=== PATIENT | male | born 1995 | race Caucasian/White ===

== ENCOUNTER 2021-05-18 21:07 | Emergency (ER) | payer OTHER, SELFPAY ==
[2021-05-18 21:15] VITALS: BP 153/85; PULSE 74; RESP 18; TEMP 36.7; O2SAT 99
[2021-05-18] MEDS: Lidocaine/Epinephri/Tetracaine Topical Gel 3 ML (21:25)
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
[2021-05-18 22:07] VITALS: BP 132/76; PULSE 88; RESP 18; TEMP 36.6; O2SAT 98
== END 2021-05-18 22:16 | disposition home or self-care (01) ==
PROVIDERS: Emergency Provider Student in an Organized Health Care Education/Training Program; PCP Family Medicine
DX: S01.511A Laceration without foreign body of lip, initial encounter (principal); Y04.2XXA Assault by strike against or bumped into by another person, initial encounter
CPT/HCPCS: 12011; 90471

== ENCOUNTER 2023-10-18 03:37 | Emergency (ER) | payer SELFPAY ==
[2023-10-18 03:43] VITALS: BP 106/74; PULSE 64; RESP 15; TEMP 36.2; O2SAT 98
[2023-10-18 03:51] VITALS: RESP 14
--- NOTE | 2023-10-18 04:00 | W.ED.GENAD ---
Discharge Plan Disposition Patient Disposition: [facility] Condition: Stable Discharge Details Clinical Impression: Substance abuse Primary Care Provider: Irina Wallace ED Provider: Silverio Villalpando Meds and New Rx's Prescriptions: No Action quetiapine [Seroquel] 300 mg Tablet 300 mg PO HS Rx Instructions: Take with 50 mg tab for total dose 350 mg Daily melatonin 3 mg Tablet 6 mg PO HS PRN PRN acetaminophen 500 mg Tablet 500 mg PO DAILY PRN PRN pantoprazole [Protonix] 20 mg Tablet,Delayed Release (Dr/Ec) 20 mg PO DAILY sertraline 25 mg Tablet 75 mg PO DAILY naproxen 500 mg Tablet 500 mg PO BID PRN PRN (Reason: Pain) buprenorphine HCl [Subutex] 2 mg Tablet, Sublingual 4 mg SUBLINGUAL DAILY AM quetiapine [Seroquel] 50 mg Tablet 50 mg PO HS Rx Instructions: Take with 300 mg tab for total of 350 mg Daily Discharge Instructions Additional Instructions: You were brought to the ED for medical evaluation. Once the special police officer left you were wide-awake, argumentative, abusive to staff. You are cleared to be released into police custody. HPI General Mode of arrival: wheelchair. Date/Time Provider Initiated Documentation: 10/18/23 03:52. Limitations to Documentation: altered mental status. Information obtained by: police. HPI Narrative: Patient is brought to the ED by police for medical evaluation. Patient was arrested this evening. During processing officer reports that patient was awake, agitated, abusive and swearing. He was being transported from [facility] for housing until he could go to court in the morning. Officer reports that on the drive over he seemed to be sleeping for the most part in the back. Officer reports stopping a couple of times to check on his wellbeing and he seemed to be breathing fine. When he arrived to the [facility] here in [place] medical staff did not feel comfortable and thought he was to obtunded and wanted him evaluated in the ED. Patient at the time of my evaluation is handcuffed and sitting in a wheelchair with his head hanging back over the wheelchair sleeping. Related Data Home Medications ?Medication ?Instructions ?Recorded ?Confirmed acetaminophen 500 mg tablet 500 mg PO DAILY PRN PRN 05/18/21 05/18/21 buprenorphine HCl 2 mg sublingual 4 mg sublingual DAILY AM 05/18/21 05/18/21 tablet melatonin 3 mg tablet 6 mg PO HS PRN PRN 05/18/21 05/18/21 naproxen 500 mg tablet 500 mg PO BID PRN PRN Pain 05/18/21 05/18/21 pantoprazole 20 mg tablet,delayed 20 mg PO DAILY 05/18/21 05/18/21 release (Protonix) quetiapine 300 mg tablet (Seroquel) 300 mg PO HS 05/18/21 05/18/21 quetiapine 50 mg tablet (Seroquel) 50 mg PO HS 05/18/21 05/18/21 sertraline 25 mg tablet 75 mg PO DAILY 05/18/21 05/18/21 Allergies Allergy/AdvReac Type Severity Reaction Status Date / Time cefadroxil (From [facility]) Allergy Skin Rash Unverified 05/18/21 21:20 General Stated Complaint: GenMedical ANG: 3 Review of Systems Unobtainable due to mental status Exam Narrative Exam Narrative: Const: WDWN male sleeping in wheelchair. VS per triage. HEENT: NC/AT. Normal facial exam. Eyes: Pinpoint pupils. Neck: Supple. Trachea midline. Lungs: Normal respiratory effort. Cor: RRR. Good radial pulses. Neuro: Difficult to awaken and very difficult to understand when he is speaking. Cranial nerves II - XII grossly intact. No gross motor or sensory deficit. Course Vital Signs Vital signs: Vital Signs Temperature 97.2 F L 10/18/23 03:43 Pulse 64 10/18/23 03:43 Respiratory Rate 15 10/18/23 03:43 Blood Pressure 106/74 10/18/23 03:43 Pulse Oximetry 98 10/18/23 03:43 Temperature 97.2 F L 10/18/23 03:43 Temperature Source Temporal Artery Scan 10/18/23 03:43 Pulse 64 10/18/23 03:43 Respiratory Rate 14 10/18/23 03:51 Respiratory Effort Normal, Non-Labored 10/18/23 03:51 Respiratory Depth Shallow 10/18/23 03:51 Respiratory Pattern Normal 10/18/23 03:51 Blood Pressure 106/74 10/18/23 03:43 Blood Pressure Position Sitting 10/18/23 03:43 Pulse Oximetry 98 10/18/23 03:43 Oxygen Delivery Method Room Air 10/18/23 03:43 Oxygen Flow Rate 0 10/18/23 03:43 Pain Level 0 10/18/23 03:43 Medical Decision Making Patient is here for clearance before being brought to corrections. personal banking officer present reports that he is a known substance abuser. Patient appears to be sleeping with pinpoint pupils. Potentially used stimulant as well as opiate as he has been in custody since around midnight. The stimulant has worn off and the opiate is still present might explain his altered mental status. As such he is given 1 mg of Narcan intranasally. He did have some improvement but still seemed quite altered and sleepy. After discussion with please officer patient does have condition for release as well as pale. Officer will leave patient here and return to corrections to get his paperwork. Patient was taken out of handcuffs and placed on the stretcher. Soon as the special police officer left the patient was wide-awake. He was abusive towards staff, swearing and even spit at one of the nurses. I have no concern for his mental status at this point and suspect he was playing possum given how quickly he woke up as soon he was taken out of cuffs and the special police officer left. Call was placed to dispatch and [facility] notified. Officer returned and took the patient back into custody to transport him to corrections. PFSH All Active Problems Substance abuse (Acute) Medical History Medical history unknown Surgical History Surgical history unknown Social History Smoking/Tobacco Use Status: Current every day Tobacco Type: cigarettes Smoking risk assessment performed?: Yes Drug use: Daily Substance use type: heroin, opiates and IV drugs Details: Heroin, Fentanyl , any Opiate, mainly smoking but IV use also. Housing: other
[2023-10-18 04:29] VITALS: PULSE 62; RESP 22; O2SAT 98
== END 2023-10-18 04:38 ==
PROVIDERS: Emergency Provider Emergency Medicine; PCP Family Medicine
DX: F19.10 Other psychoactive substance abuse, uncomplicated (principal); F17.210 Nicotine dependence, cigarettes, uncomplicated
CPT/HCPCS: 99282; J2310

== ENCOUNTER 2024-11-21 07:20 | Emergency (ER) | payer SELFPAY ==
[2024-11-21 07:20] VITALS: BP 119/84; PULSE 56; RESP 16; TEMP 36.9; O2SAT 99
[2024-11-21] MEDS: levETIRAcetam 500 MG TAB 1000 MG PO (07:42)
--- NOTE | 2024-11-21 07:44 | W.ED.GENAD ---
Discharge Plan Disposition Patient Disposition: Home Condition: Stable Discharge Details Clinical Impression: Seizure disorder Primary Care Provider: Irina Wallace ED Provider: Syed Pendleton Home Meds and New Rx's Prescriptions: New levetiracetam 1,000 mg tablet 1,000 mg PO BID Qty: 60 0RF Continued melatonin 3 mg Tablet 6 mg PO HS PRN PRN acetaminophen 500 mg Tablet 500 mg PO DAILY PRN PRN pantoprazole [Protonix] 20 mg Tablet,Delayed Release (Dr/Ec) 20 mg PO DAILY sertraline 25 mg Tablet 75 mg PO DAILY naproxen 500 mg Tablet 500 mg PO BID PRN PRN (Reason: Pain) methadone 75 mg PO DAILY pregabalin 100 mg capsule 100 mg PO BID Patient Comments: TAKE 1 CAPSULE BY MOUTH IN THE MORNING AND TAKE 2 CAPSULES AT BEDTIME MAXIMUM DAILY DOSE = 3 CAPSULES levetiracetam 1,000 mg tablet 1,000 mg PO BID Patient Comments: TAKE ONE TABLET BY MOUTH TWICE A DAY Discharge Instructions Additional Instructions: I have prescribed you a 1 month supply of your seizure medication. Please follow-up with your primary care provider or neurologist to continue the prescription. Return to emergency department if you feel more ill or feel you are suffering from an emergent medical process. HPI General Mode of arrival: EMS. Date/Time Provider Initiated Documentation: 11/21/24 07:29. Limitations to Documentation: no limitations. Information obtained by: patient. History of Present Illness 28 year old M presents to the emergency department with the chief complaint of out of seizure medication, Patient started experiencing this week(s) (1) and it has been constant. No relieving factors improve symptom(s), No exacerbating factors reported . Patient notes denies chest pain, fever/chills, nausea/vomiting and shortness of breath. Patient did receive the following treatments prior to arrival, none Related Data Home Medications ?Medication ?Instructions ?Recorded ?Confirmed acetaminophen 500 mg tablet 500 mg PO DAILY PRN PRN 05/18/21 11/21/24 melatonin 3 mg tablet 6 mg PO HS PRN PRN 05/18/21 11/21/24 naproxen 500 mg tablet 500 mg PO BID PRN PRN Pain 05/18/21 11/21/24 pantoprazole 20 mg tablet,delayed 20 mg PO DAILY 05/18/21 11/21/24 release (Protonix) sertraline 25 mg tablet 75 mg PO DAILY 05/18/21 11/21/24 levetiracetam 1,000 mg tablet 1,000 mg PO BID 11/21/24 11/21/24 levetiracetam 1,000 mg tablet 1,000 mg PO BID #60 tabs 11/21/24 methadone 75 mg PO DAILY 11/21/24 11/21/24 pregabalin 100 mg capsule 100 mg PO BID 11/21/24 11/21/24 Previous Rx's ?Medication ?Instructions ?Recorded levetiracetam 1,000 mg tablet 1,000 mg PO BID #60 tabs 11/21/24 Allergies Allergy/AdvReac Type Severity Reaction Status Date / Time cefadroxil (From [facility] Allergy Skin Rash Unverified 11/21/24 07:27 General Stated Complaint: Seizure ANG: 3 Review of Systems All systems reviewed & are unremarkable except as noted in HPI and below Constitutional Constitutional: Denies chills, Denies fever(s) and Denies weakness Cardiovascular Cardiovascular: Denies chest pain and Denies dyspnea Respiratory Respiratory: Denies cough and Denies dyspnea Gastrointestinal Gastrointestinal: Denies abdominal pain, Denies nausea and Denies vomiting Neurologic Neurologic: Denies weakness Exam Const General: no acute distress Orientation: alert [facility] Head: normal to inspection Ears: external ears normal General nose exam: external nose normal Mouth: moist mucous membranes Eyes General: appearance normal, both eyes and all related structures Neck Neck: normal visual inspection Resp Effort & Inspection: normal respiratory effort and able to speak in complete sentences Cardio Rate: regular rate Skin General skin exam: no rashes or lesions noted Neuro General: patient alert and patient oriented x3 Cranial Nerves: CN's II-XI intact bilaterally Cognition: normal cognition Speech: speech normal Gait: normal gait Motor: muscle tone normal throughout Sensory Exam: no sensory deficits noted Extrem General: normal to inspection Psych Mental Status: mental status grossly normal Course Vital Signs Vital signs: Vital Signs Temperature 36.9 C 11/21/24 07:20 Pulse 56 L 11/21/24 07:20 Respiratory Rate 16 11/21/24 07:20 Blood Pressure 119/84 11/21/24 07:20 Pulse Oximetry 99 11/21/24 07:20 Temperature 36.9 C 11/21/24 07:20 Pulse 56 L 11/21/24 07:20 Respiratory Rate 16 11/21/24 07:20 Blood Pressure 119/84 11/21/24 07:20 Pulse Oximetry 99 11/21/24 07:20 Medical Decision Making 28-year-old male with a history of substance abuse and reported seizure disorder states he has been out of his seizure medication for about a week because he states that his medications got wet and was unable to contact his PCP to have it refilled. He does not know failure but states he was present and was discharged states he thought he was having an aura which sometimes indicates he is can have a seizure so he called EMS and was brought here. He states he thinks he had a seizure a week ago but is unable to provide any details on this. He is currently alert oriented x 4 with clear speech, moving all extremities well, NIH of 0. Denies any SI or HI. Has no meningismus or fevers. I do not feel any lab work or imaging is indicated, I am going to give him his dose of Keppra and provide him a short course of his Keppra until he can see his PCP. He is stable for discharge and will follow-up with his PCP, return precautions given Differential Diagnosis Differential Diagnosis: Seizure disorder, out of seizure medication PFSH All Active Problems (Updated 11/21/24 @ 07:49 by Syed Pendleton MD) Seizure disorder (Chronic) Medical History Medical history unknown Surgical History Surgical history unknown Social History Smoking/Tobacco Use Status: Current every day Tobacco Type: cigarettes Smoking risk assessment performed?: Yes Drug use: Daily Substance use type: heroin, opiates and IV drugs Details: Heroin, Fentanyl , any Opiate, mainly smoking but IV use also. Housing: other
--- NOTE | 2024-11-21 08:24 | NUR.NOTE ---
Nursing Note: 75mg Methadone daily dose confirmed by Emeka @ [facility]
[2024-11-21] MEDS: Methadone Liquid 10 MG/ML 75 MG PO (08:38)
--- NOTE | 2024-11-25 07:15 | NUR.NOTE ---
Nursing Note: Received call from patient that [facility] in [place],, [place] needs verification that he received his Methadone dose here on 11/21/2024. Called [facility] and spoke w/nurse Tanna. Fax number verified and fax sent to verify dose received to fax # [phone]
== END 2024-11-21 09:03 | disposition home or self-care (01) ==
LOC: ER 08:21
PROVIDERS: Emergency Provider Emergency Medicine; PCP Family Medicine
DX: G40.909 Epilepsy, unspecified, not intractable, without status epilepticus (principal)
CPT/HCPCS: 99283 ×2